=== PATIENT | female | born 1995 | race Caucasian/White ===

== ENCOUNTER → 2019-06-10 16:39 | Outpatient (CLI) | payer MEDICAID ==
[~2019-06-10 16:39] MED LIST: HYDROCODON-ACE1 EA10 PO; MOTRIN600 MG PO
[2019-06-16 09:30] VITALS: BMI 35.0
== END | disposition home or self-care (01) ==
LOC: D.LDO 16:39
PROVIDERS: ATTEND Obstetrics & Gynecology
DX: O26.893 Other specified pregnancy related conditions, third trimester (principal); Z3A.38 38 weeks gestation of pregnancy

== ENCOUNTER → 2019-06-12 14:44 | Outpatient (CLI) | payer MEDICAID ==
[2019-06-16 09:30] VITALS: BMI 35.0
== END | disposition home or self-care (01) ==
LOC: D.LDO 14:44
PROVIDERS: ATTEND Obstetrics & Gynecology
DX: O26.899 Other specified pregnancy related conditions, unspecified trimester (principal); Z3A.00 Weeks of gestation of pregnancy not specified; R05 Cough

== ENCOUNTER 2019-06-16 07:35 | Inpatient (IN) | payer MEDICAID ==
[~2019-06-16] VITALS: Ht 152.4 cm; Wt 81.4 kg
[2019-06-16 08:43] LABS: HEMATOCRIT 38.3 % (36.0-48.0); HEMOGLOBIN 12.8 g/dL (12-16); MCH 31.8 pg (26.0-34.0); MCHC 33.4 g/dL (31.0-37.0); MEAN PLATELET VOLUME 9.7 fL (7.4-10.4); RBC 4.03 10x6/uL (4.00-5.40); RDW 13.5 % (11.5-14.5); WBC 10.6 10x3/uL (4.8-10.8)
[2019-06-16 08:54] LABS: APPEARANCE HAZY (CLEAR); BACTERIA MODERATE /hpf (NEGATIVE); BILIRUBIN NEGATIVE (NEGATIVE); COLOR YELLOW (YELLOW); EPITHELIAL CELLS 0-5 /hpf (0-5); GLUCOSE NEGATIVE (NEGATIVE); KETONE SMALL mg/dL (NEGATIVE); MUCUS <1+ /lpf (NONE SEEN); NITRITE NEGATIVE (NEGATIVE); PROTEIN NEGATIVE (NEGATIVE); RED CELLS - URINE RARE /hpf (0-5); SPECIFIC GRAVITY 1.015 (1.005-1.020); UROBILINOGEN NORMAL (NORMAL); WHITE CELLS - URINE 0-5 /hpf (NEGATIVE)
[2019-06-16 09:30] VITALS: BP 135/68; Ht 152.4 cm; Wt 81.4 kg
--- NOTE | 2019-06-16 19:45 | NUR ---
1937 VIABLE BABY BOY DELIVERED, CORD BLOOD AND GASES DONE AND SENT OUT, MISAEL.
[2019-06-16 21:11] VITALS: BP 124/71
--- NOTE | 2019-06-16 21:11 | NUR ---
RECEIVED PT VIA BED FROM POST C/S WITH DR KAUFMAN, PT TO ROOM 1218, VS OBTAINED, IV IN RIGHT WRIST INTACT WITH NO REDNESS OR EDEMA INFUSING NS WITH PITOCIN VIA PUMP AT 125 ML/HR, FF, ML, U/U, LITE BLEEDING NOTED WITH NO CLOTS, FRESH LORNA PAD PLACED, [employer] WITH LARGE DRESSING CDI WITH NO DRAINAGE NOTED, ICE PACK TO ABD, HEWITT CATH DRAINING LIGHTLY BLOOD TINGED URINE, EMPTIED 125 MLS FROM HEWITT CATH, SCD'S APPLIED AND WORKING PROPERLY, INFORMED PT THAT I WILL INITIATE TELEPHONE OPERATOR RECEPTIONIST, PT VERBALIZES UNDERSTANDING, PT ORIENTED TO ROOM, BED IN LOW POSITION, SIDE RAILS X 2, CALL LIGHT IN REACH, PT'S FATHER AT BEDSIDE
[2019-06-16 21:30] VITALS: BP 112/72
--- NOTE | 2019-06-16 21:40 | NUR ---
DR KAUFMAN ON UNIT, REPORT OF NO ORDERS IN COMPUTER, ORDERS RECEIVED, READ BACK AND NOTED FOR DILAUDID PRESCHOOL DIRECTOR AND TORADOL, SEE ORDERS
--- NOTE | 2019-06-16 21:44 | NUR ---
DILAUDID BUSINESS SOLUTIONS CONSULTANT INITIATED, SEE EMAR, PT INST ON AND VERBALIZES UNDERSTANDING, PUSHES BUSINESS SOLUTIONS CONSULTANT BUTTON AT THIS TIME
[2019-06-16 21:45] VITALS: BP 113/64
[2019-06-16 22:00] VITALS: BP 119/71
--- NOTE | 2019-06-16 22:40 | NUR ---
PT AWAKE, LORNA PAD CHANGED, LITE BLEEDING NOTED WITH NO CLOTS, LORNA PAD CHANGED, PT INST TO DRINK PLENTY OF H20, PT REPORTS DRINKING, DENIES NAUSEA, ADM TORADOL PER MD ORDERS, SEE EMAR, VS CONTINUE, SCD'S CONTINUE ON AND WORKING PROPERLY, PT DENIES FURTHER NEEDS, PT'S DAD AT BEDSIDE
[2019-06-16 23:00] VITALS: BP 114/67
--- NOTE | 2019-06-16 23:00 | NUR ---
VS CONTINUE, PT REQUESTED AND SERVED CHICKEN BROTH, LEMON [place] SODA, AND FRESH H20, PT DENIES FURTHER NEEDS, PT'S DAD AT BEDSIDE
--- NOTE | 2019-06-16 23:45 | NUR ---
THIS RN TO MOMS ROOM TO GIVE STATUS OF INFANT. VIDEO MADE PER THIS RN PER PT REQUEST ON GRAND DADS PHONE. MOM REASSURED W/VIEWING VIDEO.
[2019-06-17 00:30] VITALS: BP 127/79
--- NOTE | 2019-06-17 00:30 | NUR ---
PT HOLDING , VS COMPLETED, HEWITT CATH EMPTIED, FRESH ICE PACK TO ABD, LORNA CARE DONE WITH WET WARM WASH CLOTHS, CHUX AND LORNA PAD CHANGED, MOD BLEEDING NOTED, PT RATES INC PAIN 01/05, PUSHES GLAZING DEPARTMENT SUPERVISOR BUTTON AT THIS TIME, PT DENIES NEEDS, SCD'S CONTINUE ON AND WORKING PROPERLY, PT'S DAD AT BEDSIDE
--- NOTE | 2019-06-17 01:16 | NUR ---
ice pack taken to pt per her request. no other c/o or needs at this time.
--- NOTE | 2019-06-17 02:00 | NUR ---
PT CHANGE MANAGEMENT ADMINISTRATOR LIGHT, PT READY TO GET SOME REST, REQUESTED AND SERVED APPLE JUICE, PT ENC TO DRINK PLENTY OF FLUIDS, PT VERBALIZES UNDERSTANDING, DENIES FURTHER NEEDS, TO NSY VIA OPEN CRIB CART PER THIS RN, PT'S DAD AT BEDSIDE
[2019-06-17 03:10] VITALS: BP 130/64
--- NOTE | 2019-06-17 03:10 | NUR ---
NEW BAG OF NS WITH PITOCIN HUNG INFUSING VIA PUMP AT 125 ML/HR, VS OBTAINED, LORNA CARE DONE WITH WET WARM WASH CLOTHS, LITE BLEEDING NOTED WITH NO CLOTS, LORNA PAD CHANGED, FRESH ICE PACK TO ABD, PT RATES INC PAIN 12/05, PT ENC TO CONTINUE DRINKING PLENTY OF FLUIDS, FRESH H20 SERVED, SCD'S CONTINUE ON AND WORKING PROPERLY, PT DENIES FURTHER NEEDS, PT'S DAD AT BEDSIDE
--- NOTE | 2019-06-17 04:08 | NUR ---
NSY NURSE IN ROOM ASSISTING PT WITH , PT DENIES NEEDS AT THIS TIME
[2019-06-17 05:09] LABS: BASOPHILS 0.1 % (0-2); EOSINOPHILS 0.1 % (0-7); IMMATURE GRANULOCYTES 0.4 % (0-5); LYMPHOCYTES 12.3 % (15-50); MCH 31.2 pg (26.0-34.0); MCHC 32.9 g/dL (31.0-37.0); MEAN PLATELET VOLUME 9.6 fL (7.4-10.4); MONOCYTES 6.4 % (2-11); NEUTROPHILS 80.7 % (40-80); PLATELET COUNT 176 10x3/uL (130-400); RDW 13.4 % (11.5-14.5)
[2019-06-17 05:27] LABS: HEMATOCRIT 28.6 % (36.0-48.0); HEMOGLOBIN 9.4 g/dL (12-16); RBC 3.01 10x6/uL (4.00-5.40); WBC 15.1 10x3/uL (4.8-10.8)
--- NOTE | 2019-06-17 05:36 | NUR ---
NEW VIAL OF DILAUDID TO GUITAR REPAIR TECHNICIAN, HEWITT CATH EMPTIED, LITE BLEEDING NOTED WITH NO CLOTS, FRESH ICE PACK TO ABD, PT'S DAD TO VENDING MACHINE FOR SPRITE FOR PT, PT DENIES FURTHER NEEDS
--- NOTE | 2019-06-17 05:51 | NUR ---
DR KAUFMAN PAGED
--- NOTE | 2019-06-17 05:52 | NUR ---
DR KAUFMAN CALLS UNIT, REPORT OF 06/16/19 H&H, 06/17/19 H&H, VS AT 0030 AND 0310, AND OUTPUT, STATES "OK, THAT'S FINE"
--- NOTE | 2019-06-17 06:21 | NUR ---
PT HOLDING , RATES INC PAIN 01/05, PUSHES MANAGER MOTOR BUTTON AT THIS TIME, POC DISCUSSED WITH PT REGARDING REMOVAL OF HEWITT, SALINE LOCK IV, ORAL PAIN MED, AND AMB, PT VERBALIZES UNDERSTANDING, DENIES NEEDS AT THIS TIME
[2019-06-17 07:13] LABS: RAPID PLASMA REAGIN Non Reactive (Non Reactive)
[2019-06-17 07:55] VITALS: BP 123/67
--- NOTE | 2019-06-17 07:55 | NUR ---
PT SITTING UP IN BED. RESP EVEN AND UNLABORED. PT REPORTS PAIN 6/10 AT THIS TIME. DILAUDID CLIENT RESOLUTION SPECIALIST IN PLACE AND IN USE. IV TO RIGHT WRIST WITH NS WITH 20U PITOCIN @ 125ML/HR INFUSING VIA PUMP. SITE WITHOUT REDNESS OR EDEMA. FUNDUS FIRM, 1 FINGER BREATH BELOW UMBILICUS. BIKINI LINE INCISION, NEGRITA INTACT, EDGES WELL APPROXIMATED. SITE WITHOUT REDNESS. SCANT RED TINGED DRAINAGE NOTED FROM CENTER OF INCISION. SCANT LOCHIA NOTED AT THIS TIME. DENIES FURTHER NEEDS AT THIS TIME. CL WITHIN REACH. ENCOURAGED TO CALL WITH NEEDS. CONTINUE POC
--- NOTE | 2019-06-17 09:45 | NUR ---
PT CALLED OUT FOR NURSING ASSISTANCE. PT ATTEMPTING TO SIT UP IN BED AND QUESTIONING WHEN F/C COULD BE REMOVED. EDUCATED PT REGARDING MD ORDERS AND WAITING ON ORDERS. PT VOICES UNDERSTANDING. DENIES FURTHER NEEDS AT THIS TIME. CL WITHIN REACH.
--- NOTE | 2019-06-17 10:10 | NUR ---
PT F/C D/C'D AT THIS TIME. 10ML SALINE REMOVED FROM BULB. CATH INTACT. IV FLUIDS AND AIR TRAFFIC CONTROL SPECIALIST DISCONTINUED. IV SALINE LOCKED. EASILY FLUSHES. INCENTIVE SPIROMETER AT BEDSIDE AND IN USE. DENIES FURTHER NEEDS AT THIS TIME. CL WITHIN REACH.
[2019-06-17 12:57] LABS: BASOPHILS 0.1 % (0-2); EOSINOPHILS 0.1 % (0-7); HEMATOCRIT 32.9 % (36.0-48.0); HEMOGLOBIN 10.6 g/dL (12-16); IMMATURE GRANULOCYTES 0.5 % (0-5); LYMPHOCYTES 9.5 % (15-50); MCH 30.9 pg (26.0-34.0); MCHC 32.2 g/dL (31.0-37.0); MCV 95.9 fL (80.0-100.0); MEAN PLATELET VOLUME 9.8 fL (7.4-10.4); MONOCYTES 7.8 % (2-11); PLATELET COUNT 197 10x3/uL (130-400); RBC 3.43 10x6/uL (4.00-5.40); RDW 13.5 % (11.5-14.5); WBC 15.3 10x3/uL (4.8-10.8)
[2019-06-17 13:30] VITALS: BP 127/80
[2019-06-17 17:41] VITALS: BP 131/78
--- NOTE | 2019-06-17 17:55 | NUR ---
PATIENT C/O PAIN AND REQUESTS PAIN MEDICATION. INFORMED PATIENT THAT MOTRIN IS AVAILABLE FOR PAIN RELIEF AT THIS TIME. PATIENT STATES SHE WOULD LIKE TO TAKE THE MOTRIN.
--- NOTE | 2019-06-17 19:14 | NUR ---
RECEIVED SHIFT REPORT FROM DAY SHIFT, PT ALEX , INFORMED PT THAT I WILL BE BACK SHORTLY TO DO ASSESSMENT, PT VERBALIZES UNDERSTANDING DENIES NEEDS AT THIS TIME
[2019-06-17 20:15] VITALS: BP 119/69
--- NOTE | 2019-06-17 20:15 | NUR ---
UPON ENTERING ROOM, PT IS UP IN ROOM LOOKING FOR PHONE NETWORK SYSTEMS OPERATOR, UNABLE TO FIND IT, PT C/O LORNA PANTIES BEING TO TIGHT, ASSISTED WITH CHANGING INTO LARGER LORNA PANTIES AND GOWN, PT INST ON AND VERBALIZES UNDERSTANDING CARE FOR INCISION, PT TO BED, ASSESSMENT PER FLOW SHEET, VS OBTAINED, SALINE LOCK IN RIGHT WRIST INTACT WITH NO REDNESS OR EDEMA, FF, ML, U/2, LITE BLEEDING NOTED WITH NO CLOTS, [employer] INC WITH NEGRITA CDI WITH NO DRAINAGE NOTED, LORNA PAD OVER INC FOR COMFORT AND MOISTURE CONTROL, PT REPORTS FLATUS, NO BM AND VOIDING WITH NO DIFFICULTY, PT RATES INC PAIN 5/10, INFORMED PT THAT I WILL ADM PAIN MED AND MOTRIN WHEN DUE, PT VERBALIZES UNDERSTANDING, LOANED PT PHONE NETWORK SYSTEMS OPERATOR AT THIS TIME, PT DENIES FURTHER NEEDS
--- NOTE | 2019-06-17 21:30 | NUR ---
PT RESTING IN BED, REPORTS THAT SHE IS GOING TO TAKE A LITTLE NAP RIGHT NOW, REQUESTS PAIN MED WHEN DUE, INFORMED PT THAT IT WAS DUE AT 10:30PM, PT VERBALIZES UNDERSTANDING, DENIES NEEDS
--- NOTE | 2019-06-17 22:35 | NUR ---
PT HOLDING INFANT, ATTEMPTED TO FLUSH SALINE LOCK, PT C/O OF PAIN WITH IT, STATES "THAT HURTS", SALINE LOCK REMOVED, TIP INTACT, PRESSURE HELD, BANDAID APPLIED, C/O INC PAIN, ADM NORCO PER MD ORDERS, SEE EMAR, PT SERVED FRESH H20, DENIES FURTHER NEEDS
--- NOTE | 2019-06-17 23:00 | NUR ---
PT CRYSTAL LAPPER LIGHT, INFANT TO OPEN CRIB CART PER THIS RN, ASSISTED PT TO BR, GAIT STEADY, PT INST TO USE CALL LIGHT FOR ANY ASSISTANCE, PT VERBALIZES UNDERSTANDING
[2019-06-18 00:22] VITALS: BP 125/78
--- NOTE | 2019-06-18 00:22 | NUR ---
PT AWAKE, INFANT, VS OBTAINED, ADM NORCO PER MD ORDERS, SEE EMAR, PT DENIES FURTHER NEEDS, PT REPORTS FINDING PHONE GOVERNMENT PROPERTY INSPECTOR
--- NOTE | 2019-06-18 02:38 | NUR ---
PT SITTING UP IN RECLINER HOLDING INFANT, ADM NORCO PER MD ORDERS, SEE EMAR, PT REQESTED AND SERVED FRESH H20 AND LEMON [place] SODA, DENIES FURTHER NEEDS
[2019-06-18 04:30] VITALS: BP 97/46
--- NOTE | 2019-06-18 04:30 | NUR ---
PT AROUSES TO OPENING OF DOOR, VS OBTAINED, PT RATES INC PAIN 5/, DENIES NEEDS AT THIS TIME
--- NOTE | 2019-06-18 06:20 | NUR ---
PT OFFICE CLERK LIGHT, C/O INC PAIN AND CRAMPING, ADM NORCO AND MOTRIN PER MD ORDERS, SEE EMAR, PT REQUESTED AND PROVIDED ICE PACK, DENIES FURTHER NEEDS, TO OPEN CRIB CART, PT UP TO BR, GAIT STEADY, DENIES FURTHER NEEDS
--- NOTE | 2019-06-18 08:05 | NUR ---
PT SITTING UP ON SIDE OF BED EATING BREAKFAST. NO ACUTE DISTRESS NOTED AT THIS TIME. PT REPORTS PAIN 6/10 AT THIS TIME. EDUCATED PT REGARDING NEXT TIME PAIN MEDICATION COULD BE ADMINISTERED PER MD ORDERS. PT VOICES UNDERSTANDING. FUNDUS FIRM, ONE BELOW UMBILICUS. SCANT LOCHIA NOTED. INCISION TO BIKINI LINE NOTED WITH NEGRITA INTACT. EDGES WELL APPROXIMATED. SITE WITHOUT REDNESS OR EDEMA OR DRAINAGE. PT DENIES BM, BUT DOES VOICE PASSING GAS. BOWEL SOUNDS ACTIVE X 4. DENIES FURTHER NEEDS AT THIS TIME. CL WITHIN REACH. ENCOURAGED TO CALL WITH NEEDS. CONTINUE POC
[2019-06-18 09:20] VITALS: BP 113/68
--- NOTE | 2019-06-18 11:31 | NUR ---
PT SITTING UP ON SOB HOLDING BABY. REPORTS PAIN AT THIS TIME 10/05. DENIES FURTHER NEEDS AT THIS TIME. CL WITHIN REACH. ENCOURAGED TO CALL WITH NEEDS.
[2019-06-18 11:57] VITALS: BP 120/75
--- NOTE | 2019-06-18 12:00 | NUR ---
AMBULATING IN ROOM. CARING FOR BABY INDEPENDENTLY. STATES PAIN LEVEL DOWN FROM 6 TO 3 FOLLOWING NORCO ADMINISTRATION. NO COMPLAINTS AT THIS TIME.
--- NOTE | 2019-06-18 13:41 | NUR ---
ABDOMENAL BINDER APPLIED PER ORDERS. 2+ EDEMA NOTED BILATTERAL LOWER EXTREMITIES. PATIENT HAS BEEN SITTING UP WITH FEET IN DEPENDENT POSITION. POSITIONED PATIENT IN BED SUPINE POSITON WITH HOB ELEVATED 30 DEGREES AND FEET LOWER LEGS ELEVATED WITH ONE PILLOW.
[2019-06-18] MEDS ORDERED: HYDROCODON-ACE1 EA10 PO (15:41)
[2019-06-18] MEDS ORDERED: MOTRIN600 MG PO (15:42)
[2019-06-18 16:30] VITALS: BP 131/76
--- NOTE | 2019-06-18 16:39 | NUR ---
PULSE ELEVATED PER MONITOR. PULSE TAKEN APICALLY X 60 SECONDS REVEALING HR OF 120. PT. DENIES CHEST PAIN, SHORTNESS OF BREATH OR POUNDING HEART. DOES STATE SHE DOESN'T FEEL LIKE THE LAST DOSE OF NORCO HAS HELPED WITH HER PAIN MUCH. HAS BEEN TAKEN TO THE NURSERY FOR CIRUMCISION. OFFERED MOTRIN FOR PAIN.
--- NOTE | 2019-06-18 16:45 | NUR ---
NORCO NOT AVAILABLE UNTIL 183. MIN NOT DUE UNTIL 193. WILL OFFER PAIN MEDS AGAIN WHEN AVAILABLE.
--- NOTE | 2019-06-18 18:24 | NUR ---
DISCHARGE TEACHING COMPLETED WITH PATIENT. STATES UNDERSTANDING. PRESCRIPTIONS GIVEN. FOLLOW-UP APPOINTMENT SCHEDULED WITH DR. KAUFMAN 11.16.19 @ 0800. DISCHARGED HOME IN STABLE CONDITION VIA WHEELCHAIR TO PRIVATE VEHICLE WITH PERSONAL BELONGINGS ACCOMPANIED BY HOSPITAL STAFF.
--- NOTE | 2019-07-02 17:06 | OP ---
PATIENT NAME: GENTRY JOHNSON MEDICAL RECORD: [id number] :96 LOCATION:[facility] D.1218 ADMISSION DATE:06/16/19 SURGEON: SHAHID ASCENCIO MD DATE OF OPERATION: 06/16/2019 PREOPERATIVE DIAGNOSES: 1. Term intrauterine . 2. Arrest of dilatation/descent during labor. POSTOPERATIVE DIAGNOSES: 1. Term intrauterine . 2. Arrest of dilatation/descent during labor. 3. Occiput posterior presentation. PROCEDURE: Primary low transverse section and bilateral distal salpingectomy. SURGEON: Shahid Ascencio MD ANESTHESIA: Regional via epidural. INTRAVENOUS FLUIDS: Per anesthesia record. ESTIMATED BLOOD LOSS: 1200 cc. SPECIMENS: Placenta, cord for gases, and distal tubal segments. COMPLICATIONS: None apparent. DESCRIPTION OF PROCEDURE: The patient was taken to the operating room where regional anesthesia was achieved without any difficulty. The patient was prepped and draped in normal sterile fashion in the dorsal supine position. SCDs were on and functioning normally. A Eddy catheter had been placed and was draining freely. At this point, a Pfannenstiel skin incision was made, extended downward to the underlying subcutaneous fat to the level of the fascia. The fascia was then excised in the midline with a scalpel and extended bilaterally using the Oakes scissors. The superior and inferior aspects of the fascial incision were then grasped with Lotus clamps times 2, tented upward, and sharply dissected from the underlying rectus muscles using the Bovie cautery and the Oakes scissors. The rectus muscles were then bluntly in the midline and the peritoneum entered sharply at the superior aspect of the incision using the Metzenbaum scissors. The peritoneal incision was then extended bilaterally using the Metzenbaum scissors again. A bladder blade was placed into the pelvis. A bladder flap was created by excising the anterior leaf of the broad ligament across the lower uterine segment with the Metzenbaum scissors. The bladder flap was developed and a low transverse incision was made using a scalpel. This was extended using the Pelosi method. The vertex was found to be in occiput posterior presentation. The head was rotated ventrally with immediate delivery without difficulty. The body followed easily atraumatically. was bulb suctioned upon delivery. The cord was clamped times 2 and cut. was handed to the awaiting nursery team. Cord was obtained for cord gases, and the placenta was removed manually and intact. A 3-vessel cord was noted. Uterus was exteriorized, cleared of all clots and debris and vigorously massaged. A good uterine tone was noted. Uterine incision was then repaired with 0 Vicryl in a running locked fashion times 2 OPERATIVE REPORT [id number] GENTRY JOHNSON with good hemostasis noted. Attention was then turned to the bilateral fallopian tubes, where a defect was made in the bilateral broad ligaments using the Bovie cautery into the mesosalpinx. Curved Yaneth clamps were then placed across the fallopian tube in its midsection and across the mesosalpinx, both tips and being at the area of the previous defect made in the broad ligament. A section of cord was then transected, and the mesosalpinx and proximal tubal stump was then free tied with 2-0 Vicryl bilaterally and then suture ligated bilaterally with good hemostasis noted from all 4 sites. The posterior cul-de-sac was then thoroughly irrigated and the uterus was gently replaced into the pelvis. The anterior cul-de-sac was then thoroughly irrigated, and the uterine incision was found to be hemostatic. Counts were correct times 2 for needles, sponges, and instruments. The fascia was then repaired with 0 loop PDS times 1, and the skin was repaired with cathy. The patient tolerated the procedure well, transferred to postanesthesia recovery stable without incident. TRANSINT:[id number] Voice Confirmation ID: [id number] DOCUMENT ID: [id number] SHAHID ASCENCIO MD at 1706 CC: [id number] DICTATION DATE: 06/28/19 1026 SYSTEM DEVELOPMENT ENGINEER: 06/28/19 1147 DIS IN 06/18/19 [place] [id number] [place] [id number]
== END 2019-06-18 18:24 | disposition home or self-care (01) | DRG 785 ==
LOC: D.LD 07:35 → D.WS 07:35
PROVIDERS: ADMIT Obstetrics & Gynecology; ATTEND Obstetrics & Gynecology
PROC: 10907ZC Drainage of Amniotic Fluid, Therapeutic from Products of Conception, Via Natural or Artificial Opening (ICD-10-PCS; 2019-06-16)
PROC: 10D00Z1 Extraction of Products of Conception, Low, Open Approach (ICD-10-PCS; principal; 2019-06-16 19:13)
PROC: 0UB70ZZ Excision of Bilateral Fallopian Tubes, Open Approach (ICD-10-PCS; 2019-06-16 19:13)
DX: O99.824 Streptococcus B carrier state complicating childbirth (principal); Z3A.39 39 weeks gestation of pregnancy; Z37.0 Single live birth; O62.1 Secondary uterine inertia; O36.8330 Maternal care for abnormalities of the fetal heart rate or rhythm, third trimester, not applicable or unspecified; Z30.2 Encounter for sterilization